=== PATIENT | female | born 1950 | race Hispanic/Latino ===

== ENCOUNTER 2021-12-08 12:41 | Day surgery (SDC) | payer MEDICARE ==
[2021-12-07 10:44] VITALS: BMI 29.9
[2021-12-08] MEDS ORDERED: Sodium Bicarbonate 2.5 MEQ/5 ML VIAL ONE (12:55)
[2021-12-08] MEDS ORDERED: Lidocaine 1% PF 5 ML VIAL ONE (12:55)
[2021-12-08 13:23] VITALS: BP 155/83; TEMP 98.8
== END 2021-12-08 13:54 | disposition home or self-care (01) ==
LOC: ULT 12:41
PROVIDERS: ATTEND Student in an Organized Health Care Education/Training Program
PROC: 0G9H3ZX Drainage of Right Thyroid Gland Lobe, Percutaneous Approach, Diagnostic (ICD-10-PCS; principal; 2021-12-08)
DX: E04.1 Nontoxic single thyroid nodule (principal); I10 Essential (primary) hypertension; E11.40 Type 2 diabetes mellitus with diabetic neuropathy, unspecified; Z79.1 Long term (current) use of non-steroidal anti-inflammatories (NSAID); Z79.899 Other long term (current) drug therapy
CPT/HCPCS: 10005; 88173; 88305

== ENCOUNTER 2022-02-06 08:06 | Outpatient (CLI) | payer MEDICARE | END 2022-02-06 08:07 | disposition home or self-care (01) | LOC: SCSMRI 08:06 | PROVIDERS: ATTEND Orthopaedic Surgery | DX: M17.12 Unilateral primary osteoarthritis, left knee (principal); M79.89 Other specified soft tissue disorders; I10 Essential (primary) hypertension; R60.0 Localized edema; M71.22 Synovial cyst of popliteal space [Baker], left knee | CPT/HCPCS: 82565 ==